=== PATIENT | male | born 1985 | race Caucasian/White ===

== ENCOUNTER 2017-03-20 16:26 | Emergency (ER) | payer SELFPAY ==
[2017-03-20] MEDS ORDERED: Ketorolac Tromethamine 30 MG/ML VIAL ONE (17:39)
[2017-03-20 17:58] LABS: #Eosinphils 0.2 thou/uL (0.0-0.7); #Lymphocytes 2.4 thou/uL (1.20-3.40); #Monocytes 0.7 thou/uL (0.11-0.59); #Neutrophils 6.9 thou/uL (1.40-6.50); %Basophils 0.2 % (0.0-1.0); %Eosinophils 2.2 % (0.0-10.0); %Monocytes 7.2 % (0.0-10.0); Hematocrit 55.7 % (42.0-52.0); Mean Platelet Volume 9.7 fL (7.4-10.4); Red Blood Cell (RBC) Count 6.31 mill/uL (4.70-6.10); White Blood Cell (WBC) Count 10.3 thou/uL (4.8-10.8)
[2017-03-20 18:16] LABS: ALT (SGPT) 46 U/L (8-55); AST (SGOT) 35 U/L (5-34); Alkaline Phosphatase 64 U/L (40-150); Anion Gap 13 mmol/L (10-20); BUN (Urea Nitrogen) 12 mg/dL (8.9-20.6); Bilirubin, Total 0.8 mg/dL (0.2-1.2); Calc. Creatinine Clearance 0 mL/min (70-130); Calcium 9.4 mg/dL (7.8-10.44); Carbon Dioxide 27 mmol/L (22-29); Chloride 103 mmol/L (98-107); Estimated GFR-MDRD Greater than 90; Globulin 3.5 g/dL (2.4-3.5); Protein, Total 7.7 g/dL (6.0-8.3)
--- NOTE | 2017-03-20 19:01 | ULT ---
SCROTAL ULTRASOUND: Indication: Sudden onset of right testicular pain at 2:00 p.m. today. Technique: Grayscale and color doppler with vascular duplex with spectral analysis performed of the scrotum. Comparison: 11-19-16 FINDINGS: The right testicle measures 3.6 x 5.2 x 2.8 cm. No intratesticular mass or torsion is demonstrated. There is normal vascular flow to the right testicle. There are two separate epididymal head cysts se en within the right epididymal head measuring 6 and 5 mm respectively. These were not definitely see n on the comparison examination. The left testicle measured 3.4 x 4.9 x 2.6 cm. There is a small left epididymal head cyst measuring 3 mm. No intratesticular mass or torsion is demonstrated. There was a small calcification seen withi n the posterior mid aspect of the left testicle that was not definitely seen on the comparison exam. No additional calcification is evident. No adjacent mass is noted. IMPRESSION: 1. No intratesticular mass or torsion demonstrated. 2. There are small bilateral epididymal head cysts that are subcentimeter in size as above. 3. There is a tiny calcification seen within the left mid testicle that was not definitely seen on t he comparison examination. No adjacent mass is evident. As a conservative measure, would recommend a n outpatient follow up testicular ultrasound in one year to document stability of this finding. POS: [facility]
--- NOTE | 2017-03-20 19:13 | CT ---
CT ABDOMEN AND PELVIS WITHOUT IV CONTRAST: Indication: Right sided flank pain. Comparison: 11-19-16 FINDINGS: There is a 6.6 mm stone at the right UVJ causing mild right hydronephrosis. No additional renal or u reteral calculus is evident. There is severe fatty infiltration of the liver. Pancreas and adrenal glands appear within normal limits. Spleen is enlarged measuring 18 cm. There is a normal appendix in the right lower quadrant. No free fluid is evident. No definite acute osseous abnormality is evident. IMPRESSION: 1. Right UVJ stone with mild right hydronephrosis. 2. Severe fatty infiltration of the liver with mild splenomegaly. POS: [facility]
[2017-03-20] MEDS ORDERED: Ondansetron HCl/PF 4 MG/2 ML Vial ONE (20:25)
[2017-03-20 21:40] LABS: Bilirubin Negative (Negative); Blood, Urine Small (Negative); Glucose, Urine (Dipstick) Negative (Negative); Ketone, Urine Negative (Negative); Nitrite Negative (Negative); Protein, Urine (Dipstick) Negative (Neg-Trace); Urobilinogen 0.2 mg/dL (0.2-1.0)
[2017-03-20 21:42] LABS: Bacteria/HPF None Seen HPF (None Seen); Hyaline Casts/LPF 0-3 HYALINE CAST LPF (0-3 Hyaline); Squamous Epithelial None Seen HPF (0-3); WBC/HPF 0-3 HPF (0-3)
== END 2017-03-20 22:53 | disposition home or self-care (01) ==
LOC: ERS 16:26
DX: N13.2 Hydronephrosis with renal and ureteral calculous obstruction (principal); G43.909 Migraine, unspecified, not intractable, without status migrainosus
CPT/HCPCS: 74176; 76870; 80053; 81003; 81015; 85025; 93976; 96361; 96374; 96375; J1170; J1885; J2405